=== PATIENT | male | born 1940 | race Two or more races ===

== ENCOUNTER → 2016-06-23 | Day surgery (SDC) | payer MEDICARE ==
[~2016-06-23] VITALS: Ht 162.6 cm; Wt 126.8 kg
[~2016-06-23] MED LIST: ALLO100T PO; AMLO5TAB2 PO; ASPI1TAB69 PO; ASPI81CH37 CHEW; ATOR40TA16 PO; CYCLOPENTOLATE HCL 1% OPHT SOLN 2 ML BTL ONE; DEXTROSE 5%-LACTATED RING INJ 1,000 ML ONE; FLURBIPROFEN 0.03% OPHT SOLN 2.5 ML BTL ONE; GLIM4TAB PO; HYALURONIDASE/LIDOCAINE/EPINEPHRINE/BUPIVACAINE 6 ML SYR ONE; INDA2.5T PO; LANTUS2P SQ; LIDOCAINE HCL 1% 30 ML VIAL ONE; LISI-515 PO; METO25TA3 PO; NAPR500T PO; NOVOLOGSS SQ; OMEP20TA PO; PHENYLEPHRINE HCL 10% OPTH SOLN 5 ML BTL ONE; PROPARACAINE HCL 0.5% OPHT SOLN 15 ML BTL ONE; PROPOFOL 200 MG/20 ML AMP ONE; TRAM50TA PO; TROPICAMIDE 1% OPHT SOLN 15 ML BTL ONE; VITA200013
[2016-06-23 08:34] VITALS: BP 119/65; PULSE 64; RESP 20; TEMP 98.7; O2SAT 93
[2016-06-23 08:55] VITALS: PULSE 75
[2016-06-23] MEDS: TOBRAMYCIN/DEXAMETHASONE OPTH OINT 3.5 GM TUBE ONE ×2 (09:39→09:47)
[2016-06-23 10:30] VITALS: BP 122/54; PULSE 64; RESP 16; TEMP 98; O2SAT 99
--- NOTE | 2016-06-25 15:01 | MP ---
cc: ADY CANDELARIO MD DATE OF SURGERY: 06/23/2016 [facility] #[id number] PREOPERATIVE DIAGNOSIS: Visually significant cataract right eye. POSTOPERATIVE DIAGNOSIS: Visually significant cataract right eye. OPERATION: Phacoemulsification with posterior chamber lens implantation, right eye. SURGEON: Ady Candelario MD ANESTHESIA: Retrobulbar with MAC. COMPLICATIONS: None. PROCEDURE: After informed consent was obtained, the patient was brought into the operative suite and placed on appropriate monitors by the Anesthesia Service. The patient had received a prior retrobulbar injection of local anesthetic by the Anesthesia Service in the holding area. The patient's operative eye was then prepped and draped in the usual sterile fashion. A wire lid speculum was placed. A paracentesis incision was made in the peripheral cornea with a 1 mm ady keratome. The anterior chamber was filled with viscoelastic. The anterior chamber was then entered through a stepped, clear corneal incision using a sharp 3 mm ady keratome. A circular tear capsulorrhexis was then made with a bent needle cystitome. Following hydrodissection of the lens nucleus with balanced saline, phaco-emulsification of the nucleus was performed using a modified chopping technique. The remaining cortex was removed with irrigation/aspiration. The prior two procedures were both performed using the handpieces of the [employer] phaco unit. The capsular bag was then filled with viscoelastic. The intraocular lens was then injected into the capsular bag and positioned. The type of intraocular lens and its power can be found elsewhere in this chart. The remaining viscoelastic was then removed from the anterior chamber with the IA handpiece. The anterior chamber was reformed with balanced saline. The wound was then closed securely with stromal hydration. It was found to be watertight to an intraocular pressure of at least 30 mmHg by palpation. A small amount of balanced salt solution was then removed through the paracentesis site and the intraocular pressure at the end of the case was approximately 20 by palpation. All drapes were then removed. TobraDex ointment was then placed in the eye, which was closed beneath a semi-pressure patch dressing. The patient tolerated this procedure well and left the operating room awake and alert. The patient is to follow-up in my office in the morning. MD RAMY Hardwick/BJF /10:31 AM /2:57 PM
== END | disposition home or self-care (01) ==
LOC: PHSDC 07:11
PROVIDERS: ATTEND Optometrist Occupational Vision
DX: H25.011 Cortical age-related cataract, right eye (principal); E11.9 Type 2 diabetes mellitus without complications; Z79.4 Long term (current) use of insulin; Z79.899 Other long term (current) drug therapy
CPT/HCPCS: 00142; 66984; 82948; J7121; V2632